=== PATIENT | female | born 1980 | race Hispanic/Latino ===

== ENCOUNTER 2025-08-15 20:37 | Emergency (ER) | payer BC ==
[~2025-08-15] VITALS: Ht 165.1 cm; Wt 58.1 kg
[2025-08-15 21:00] VITALS: TEMP 98.8
[2025-08-15 21:45] LABS: BASOPHILS % 0.4 % (0.0-1.0); EOSINOPHILS % 0.6 % (0.0-6.0); LYMPHOCYTES % 28.5 % (18.0-39.1); MONOCYTES % 7.3 % (4.4-11.3); NEUTROPHILS % 63.2 % (38.7-80.0); RED CELL DISTRIBUTION WIDTH 12.2 % (11.7-14.4)
[2025-08-15 21:49] LABS: LEUKOCYTE ESTERASE ,URINE NEGATIVE (NEGATIVE); PROTEIN,URINE DIPSTICK NEGATIVE (NEGATIVE); URINE UROBILINOGEN 0.2 mg/dL (0.2 - 1)
[2025-08-15 21:57] LABS: EST GLOMERULAR FILTRATION RATE 107.0 ML/MIN (>=60)
[2025-08-15 22:13] LABS: EPITHELIAL CELLS,URINE FEW /LPF; WBC,URINE (MAN) 0-5 /HPF (0-5)
[2025-08-15 23:47] VITALS: PULSE 68; RESP 16; O2SAT 100
== END 2025-08-15 23:48 | disposition home or self-care (01) ==
LOC: ER 21:04
DX: R03.0 Elevated blood-pressure reading, without diagnosis of hypertension (principal); R51.9 Headache, unspecified; E03.9 Hypothyroidism, unspecified; F41.9 Anxiety disorder, unspecified; Z85.850 Personal history of malignant neoplasm of thyroid
CPT/HCPCS: 36415; 70450; 71045; 80053; 81001; 81025; 82550; 83880; 84484; 85025; 93005; 99284